=== PATIENT | female | born 1975 ===

== ENCOUNTER 2021-09-28 08:45 | Inpatient (IN) | payer OTHER ==
[~2021-09-28] VITALS: Ht 157.5 cm; Wt 59.4 kg
[2021-10-05] MEDS ORDERED: INFED50 MG/ML (14:23)
== END 2021-10-08 09:41 | disposition home or self-care (01) | DRG 743 ==
LOC: OB/GYN 10-05 08:45 → O/R 10-05 14:13 → OB/GYN 10-05 22:58 → SURG-SUITE 10-06 08:32 → OB/GYN 10-06 09:25 → SURG-SUITE 10-06 10:12
PROVIDERS: ADMIT Obstetrics & Gynecology; ATTEND Obstetrics & Gynecology
PROC: 0UT70ZZ Resection of Bilateral Fallopian Tubes, Open Approach (ICD-10-PCS; 2021-10-05)
PROC: 0UT20ZZ Resection of Bilateral Ovaries, Open Approach (ICD-10-PCS; 2021-10-05)
PROC: 0UT90ZZ Resection of Uterus, Open Approach (ICD-10-PCS; principal; 2021-10-05 09:15)
PROC: 0UB00ZZ Excision of Right Ovary, Open Approach (ICD-10-PCS; 2021-10-07)
DX: D25.1 Intramural leiomyoma of uterus (principal); D25.2 Subserosal leiomyoma of uterus; Z20.822 Contact with and (suspected) exposure to COVID-19; N72 Inflammatory disease of cervix uteri; N83.291 Other ovarian cyst, right side; N80.1 Endometriosis of ovary